=== PATIENT | female | born 1975 | race Caucasian/White ===

== ENCOUNTER → 2017-09-18 | Outpatient (CLI) | payer MEDICARE, MEDICAID ==
[2013-01-09 07:00] VITALS: BP 132/47
[~2017-09-18] MED LIST: ALBUTEROL SULFAT3 M3 IH; ALLEGRA 180MG180 MG PEG; ATIVAN0.5 MG PO; CELEXA10 MG PEG; CLARITIN10 MG PEG; CLONAZEPAM1 MG PEG; DURAGESIC25 MCG/PAT TD; LIORESAL 1010 MG/TAB PEG; MAALOX PLUS 3030 ML PEG; METAMUCIL3.4 GM/DOS PEG; MIRAPEX0.25 MG PEG; OMNICEF 121500 MG/60 PEG; OXYCODONE5 MG PEG; PHENERGAN 25 TA25 MG PEG; PREMARIN V0.625 MG/G; PRILOSEC 20MG20 MG PEG; SINGULAIR10 MG PEG; TRAZADONE HYDR100 MG PEG; VALIUM10 MG PEG; XOPENEX1.25 MG/3 IH
[2017-09-18 12:57] LABS: URINE APPEARANCE HAZY; URINE COLOR YELLOW; URINE GLUCOSE NEGATIVE (NEGATIVE); URINE PROTEIN(semi-quant) TRACE mg/dL (NEGATIVE)
[2017-09-18 12:58] LABS: URINE BILIRUBIN NEGATIVE (NEGATIVE); URINE BLOOD 250 ery/uL (NEGATIVE); URINE KETONE NEGATIVE (NEGATIVE); URINE LEUKOCYTE ESTERASE 2+ (NEGATIVE); URINE NITRATE NEGATIVE (NEGATIVE); URINE UROBILINOGEN NORMAL (NORMAL); URINE WBC 16-30 /hpf (0-3)
[2017-09-18 12:59] LABS: URINE MUCUS PRESENT (NOT PRESENT)
== END ==
LOC: LAB 12:01
PROVIDERS: Internal Medicine
DX: N39.0 Urinary tract infection, site not specified (principal)